=== PATIENT | male | born 1945 | race Caucasian/White ===

== ENCOUNTER 2022-02-11 18:01 | Emergency (ER) | payer MEDICARE, OTHER ==
[~2022-02-11 18:01] MED LIST: Iopamidol 370 76% 100 ML VIAL ONE
[2022-02-11 18:37] LABS: #Eosinphils 0.2 thou/uL (0.0-0.7); #Lymphocytes 1.4 thou/uL (1.20-3.40); #Monocytes 0.6 thou/uL (0.11-0.59); #Neutrophils 6.2 thou/uL (1.40-6.50); %Basophils 0.1 % (0.0-1.0); %Eosinophils 2.1 % (0.0-10.0); %Lymphocytes 16.6 % (21.0-51.0); %Neutrophils 74.2 % (42.0-75.0); Hemoglobin 11.2 g/dL (14.0-18.0); Mean Corpuscular HGB CONC 33.5 g/dL (32.0-36.0); Mean Corpuscular Hemoglobin 33.3 pg (27.0-31.0); Mean Corpuscular Volume 99.3 fL (78.0-98.0); Mean Platelet Volume 7.2 fL (7.4-10.4); Platelet Count 164 thou/uL (130-400); RBC Distribution Width 11.8 % (11.5-14.5); Red Blood Cell (RBC) Count 3.37 mill/uL (4.70-6.10); White Blood Cell (WBC) Count 8.3 thou/uL (4.8-10.8)
[2022-02-11] MEDS ORDERED: Ondansetron PF 4 MG/2 ML Vial ONE (18:42)
[2022-02-11 19:21] LABS: ALT (SGPT) 15 U/L (8-55); AST (SGOT) 20 U/L (5-34); Albumin 4.2 g/dL (3.4-4.8); Alkaline Phosphatase 65 U/L (40-110); Anion Gap 13 mmol/L (10-20); BUN (Urea Nitrogen) 22 mg/dL (8.4-25.7); Calc. Creatinine Clearance 0 mL/min (70-130); Calcium 8.5 mg/dL (7.8-10.44); Carbon Dioxide 17 mmol/L (23-31); Chloride 100 mmol/L (98-107); Estimated GFR 40; Globulin 2.6 g/dL (2.4-3.5); Glucose 95 mg/dL (83-110); Potassium 4.3 mmol/L (3.5-5.1); Protein, Total 6.8 g/dL (5.8-8.1); Sodium 126 mmol/L (136-145)
== END 2022-02-11 22:24 | disposition home or self-care (01) ==
LOC: ERS 18:01
DX: I71.40 Abdominal aortic aneurysm, without rupture, unspecified (principal); K59.00 Constipation, unspecified; E78.5 Hyperlipidemia, unspecified; I10 Essential (primary) hypertension; I48.91 Unspecified atrial fibrillation; N40.0 Benign prostatic hyperplasia without lower urinary tract symptoms; Z79.899 Other long term (current) drug therapy
CPT/HCPCS: 36415; 74177; 80053; 83605; 83880; 84484; 85025; 93005; 96374; J2405; Q9967

== ENCOUNTER 2022-05-09 11:07 | Inpatient (IN) | payer MEDICARE ==
[~2022-05-09 11:07] MED LIST changes: -Iopamidol 370 76% 100 ML VIAL ONE; +Iopamidol-370 76% 500 ML 1 ML ONE
[2022-05-09] MEDS ORDERED: Ipratropium Bromide 2.5 ml Neb ONE (11:32)
[2022-05-09] MEDS ORDERED: Atropine Sulfate 1 mg/10 ml Syringe ONE (11:40)
[2022-05-09] MEDS ORDERED: methylPREDNISolone Sod Succ/PF 125 MG/2 ML VIAL ONE (11:40)
[2022-05-09 12:16] LABS: #Lymphocytes 0.5 thou/uL (1.20-3.40); #Monocytes 0.5 thou/uL (0.11-0.59); #Neutrophils 10.7 thou/uL (1.40-6.50); %Basophils 0.4 % (0.0-1.0); %Eosinophils 0.2 % (0.0-10.0); %Monocytes 4.6 % (0.0-10.0); %Neutrophils 90.9 % (42.0-75.0); Hemoglobin 10.9 g/dL (14.0-18.0); Mean Corpuscular HGB CONC 33.3 g/dL (32.0-36.0); Mean Corpuscular Hemoglobin 33.5 pg (27.0-31.0); Mean Platelet Volume 7.1 fL (7.4-10.4); Platelet Count 202 10x3/uL (130-400); RBC Distribution Width 12.3 % (11.5-14.5); Red Blood Cell (RBC) Count 3.27 mill/uL (4.70-6.10); White Blood Cell (WBC) Count 11.7 10x3/uL (4.8-10.8)
[2022-05-09 12:36] LABS: ALT (SGPT) Less than 7 U/L (8-55); AST (SGOT) 11 U/L (5-34); Albumin 3.3 g/dL (3.4-4.8); Alkaline Phosphatase 81 U/L (40-110); Anion Gap 15 mmol/L (10-20); BUN (Urea Nitrogen) 21 mg/dL (8.4-25.7); Bilirubin, Total 0.9 mg/dL (0.2-1.2); Calc. Creatinine Clearance 0 mL/min (70-130); Calcium 8.3 mg/dL (7.8-10.44); Carbon Dioxide 17 mmol/L (23-31); Chloride 105 mmol/L (98-107); Estimated GFR 55; Globulin 3.3 g/dL (2.4-3.5); Glucose 116 mg/dL (83-110); Potassium 4.2 mmol/L (3.5-5.1); Protein, Total 6.6 g/dL (5.8-8.1); Sodium 133 mmol/L (136-145)
[2022-05-09 12:43] LABS: INR-International Normal Ratio 1.1; PTT 40.7 sec (22.9-36.1)
[2022-05-09 12:44] LABS: D-Dimer Test 1.25 *mcg/mL (0.27-0.43)
[2022-05-09 13:03] LABS: SARS-CoV-2 NAA Rapid Test DETECTED (NotDetected)
[2022-05-09 13:25] LABS: Analyzer IN Cardio ER; CO2 Tension 26.8 mmHg (35.0-45.0); Calcium, Ionized (arterial) 1.12 mmol/L (1.12-1.30); Carboxyhemoglobin (COHb) 0.3 gm% (0.0-3.0); Hemoglobin (Hb) 10.2 g/dL (14.0-18.0); O2 Tension (PaO2), arterial 68.2 mmHg (> 70.0); Potassium - ABG Lab 4.11 mmol/L (3.70-5.30); pH, Arterial 7.45 (7.35-7.45)
[2022-05-09 13:29] LABS: Puncture Site LRA
[2022-05-09] MEDS ORDERED: cefTRIAXone\\ROCEPHIN 2 GM VIAL ONE (13:30)
[2022-05-09] MEDS ORDERED: Azithromycin 500 MG VIAL ONE (14:10)
[2022-05-09] MEDS ORDERED: Ondansetron ODT 4 MG TAB PO PRN (15:56)
[2022-05-09] MEDS ORDERED: Acetaminophen 650 MG Suppository PR PRN (15:56)
[2022-05-09] MEDS ORDERED: Ondansetron PF 4 MG/2 ML Vial IVP PRN (15:56)
[2022-05-09] MEDS ORDERED: Ipratropium/Albuterol 3 ML NEB NEB PRN (15:58)
[2022-05-09] MEDS ORDERED: REMDESIVIR 200 MG in Sodium Chloride 0.9% 250 ML 210 ML IV SCH (21:00)
[2022-05-09] MEDS: guaiFENesin ER 600 MG TAB PO SCH (21:46)
[2022-05-09 23:44] VITALS: BMI 19.5
[2022-05-10 04:15] LABS: Legionella Urinary Ag Negative (Negative); Strep pneumo Urine Ag NEGATIVE (NEGATIVE)
[2022-05-10] MEDS ORDERED: Levothyroxine Sodium 125 MCG TAB PO SCH (06:00)
[2022-05-10 07:37] LABS: #Lymphocytes 0.4 thou/uL (1.20-3.40); #Monocytes 0.3 thou/uL (0.11-0.59); #Neutrophils 9.2 thou/uL (1.40-6.50); %Eosinophils 0.2 % (0.0-10.0); %Lymphocytes 4.3 % (21.0-51.0); %Neutrophils 92.6 % (42.0-75.0); Hemoglobin 9.8 g/dL (14.0-18.0); Mean Corpuscular HGB CONC 32.5 g/dL (32.0-36.0); Mean Corpuscular Hemoglobin 33.3 pg (27.0-31.0); Mean Platelet Volume 7.3 fL (7.4-10.4); Platelet Count 224 10x3/uL (130-400); RBC Distribution Width 12.2 % (11.5-14.5); Red Blood Cell (RBC) Count 2.95 mill/uL (4.70-6.10); White Blood Cell (WBC) Count 9.9 10x3/uL (4.8-10.8)
[2022-05-10 07:57] LABS: Anion Gap 13 mmol/L (10-20); BUN (Urea Nitrogen) 26 mg/dL (8.4-25.7); Calc. Creatinine Clearance 37 mL/min (70-130); Calcium 8.2 mg/dL (7.8-10.44); Carbon Dioxide 15 mmol/L (23-31); Chloride 108 mmol/L (98-107); Estimated GFR 52; Glucose 120 mg/dL (83-110); Potassium 4.2 mmol/L (3.5-5.1); Sodium 132 mmol/L (136-145)
[2022-05-10] MEDS: Dexamethasone 4 MG TAB PO SCH (08:24)
[2022-05-10] MEDS: guaiFENesin ER 600 MG TAB PO SCH ×2 (08:25→20:22)
[2022-05-10] MEDS: cefTRIAXone\\ROCEPHIN 1 GM in Sodium Chloride 0.9% 100 ML IVPB SCH (12:05)
[2022-05-10] MEDS: Sodium Chloride 0.9% 1,000 ML IV SCH ×2 (12:05→20:23)
[2022-05-10] MEDS: Azithromycin 500 MG in Sodium Chloride 0.9% 250 ML 250 ML IVPB SCH (15:27)
[2022-05-10] MEDS: REMDESIVIR 100 MG in Sodium Chloride 0.9% 250 ML 230 ML IV SCH (20:22)
[2022-05-10] MEDS: Tamsulosin HCl 0.4 MG CAP PO SCH (20:22)
[2022-05-10] MEDS: Acetaminophen 325 MG TAB PO PRN (20:23)
[2022-05-11 07:20] LABS: #Lymphocytes 0.4 thou/uL (1.20-3.40); #Monocytes 0.3 thou/uL (0.11-0.59); #Neutrophils 7.5 thou/uL (1.40-6.50); %Eosinophils 0.1 % (0.0-10.0); %Lymphocytes 4.4 % (21.0-51.0); %Monocytes 4.1 % (0.0-10.0); %Neutrophils 91.4 % (42.0-75.0); Hemoglobin 9.6 g/dL (14.0-18.0); Mean Corpuscular HGB CONC 34.3 g/dL (32.0-36.0); Mean Corpuscular Hemoglobin 34.3 pg (27.0-31.0); Mean Corpuscular Volume 99.9 fl (78.0-98.0); Mean Platelet Volume 7.2 fL (7.4-10.4); Platelet Count 253 10x3/uL (130-400); RBC Distribution Width 12.3 % (11.5-14.5); Red Blood Cell (RBC) Count 2.79 mill/uL (4.70-6.10); White Blood Cell (WBC) Count 8.2 10x3/uL (4.8-10.8)
[2022-05-11 07:41] LABS: Anion Gap 13 mmol/L (10-20); BUN (Urea Nitrogen) 37 mg/dL (8.4-25.7); Calc. Creatinine Clearance 38 mL/min (70-130); Calcium 8.2 mg/dL (7.8-10.44); Carbon Dioxide 17 mmol/L (23-31); Chloride 112 mmol/L (98-107); Estimated GFR 54; Glucose 119 mg/dL (83-110); Potassium 4.3 mmol/L (3.5-5.1); Sodium 138 mmol/L (136-145)
[2022-05-11] MEDS: guaiFENesin ER 600 MG TAB PO SCH ×2 (08:34→20:18)
[2022-05-11] MEDS: Dexamethasone 4 MG TAB PO SCH (08:34)
[2022-05-11] MEDS: Sodium Chloride 0.9% 1,000 ML IV SCH (11:28)
[2022-05-11] MEDS: cefTRIAXone\\ROCEPHIN 1 GM in Sodium Chloride 0.9% 100 ML IVPB SCH (12:29)
[2022-05-11] MEDS: Albuterol 200 PUFF (6.7GM INHALER) INH PRN ×2 (12:29→21:00)
[2022-05-11] MEDS: Azithromycin 500 MG in Sodium Chloride 0.9% 250 ML 250 ML IVPB SCH (15:58)
[2022-05-11] MEDS: Tamsulosin HCl 0.4 MG CAP PO SCH (20:18)
[2022-05-11] MEDS: REMDESIVIR 100 MG in Sodium Chloride 0.9% 250 ML 230 ML IV SCH (20:18)
[2022-05-11] MEDS: Atorvastatin Calcium 40 MG TAB PO SCH (20:18)
[2022-05-11] MEDS: Acetaminophen 325 MG TAB PO PRN (20:36)
[2022-05-12] MEDS: Sodium Chloride 0.9% 1,000 ML IV SCH (04:10)
[2022-05-12] MEDS: Albuterol 200 PUFF (6.7GM INHALER) INH PRN (05:30)
[2022-05-12 06:16] LABS: #Lymphocytes 0.4 thou/uL (1.20-3.40); #Monocytes 0.3 thou/uL (0.11-0.59); #Neutrophils 6.7 thou/uL (1.40-6.50); %Eosinophils 0.1 % (0.0-10.0); %Lymphocytes 4.9 % (21.0-51.0); %Monocytes 3.5 % (0.0-10.0); %Neutrophils 91.6 % (42.0-75.0); Hemoglobin 9.5 g/dL (14.0-18.0); Mean Corpuscular Hemoglobin 33.3 pg (27.0-31.0); Mean Platelet Volume 7.2 fL (7.4-10.4); Platelet Count 271 10x3/uL (130-400); RBC Distribution Width 12.2 % (11.5-14.5); Red Blood Cell (RBC) Count 2.86 mill/uL (4.70-6.10); White Blood Cell (WBC) Count 7.3 10x3/uL (4.8-10.8)
[2022-05-12 06:40] LABS: Anion Gap 13 mmol/L (10-20); BUN (Urea Nitrogen) 44 mg/dL (8.4-25.7); Calc. Creatinine Clearance 39 mL/min (70-130); Calcium 8.1 mg/dL (7.8-10.44); Carbon Dioxide 17 mmol/L (23-31); Chloride 108 mmol/L (98-107); Estimated GFR 55; Glucose 118 mg/dL (83-110); Potassium 4.6 mmol/L (3.5-5.1); Sodium 133 mmol/L (136-145)
[2022-05-12] MEDS: Dextrose 5 %-0.45 % NaCl 1,000 ML IV SCH ×2 (09:03→20:52)
[2022-05-12] MEDS: Dexamethasone 4 MG TAB PO SCH (09:04)
[2022-05-12] MEDS: guaiFENesin ER 600 MG TAB PO SCH ×2 (09:04→20:52)
[2022-05-12] MEDS: Clopidogrel Bisulfate 75 MG TAB PO SCH (09:04)
[2022-05-12] MEDS: cefTRIAXone\\ROCEPHIN 1 GM in Sodium Chloride 0.9% 100 ML IVPB SCH (13:47)
[2022-05-12] MEDS: Azithromycin 500 MG in Sodium Chloride 0.9% 250 ML 250 ML IVPB SCH (15:53)
[2022-05-12] MEDS: Atorvastatin Calcium 40 MG TAB PO SCH (20:52)
[2022-05-12] MEDS: REMDESIVIR 100 MG in Sodium Chloride 0.9% 250 ML 230 ML IV SCH (20:52)
[2022-05-12] MEDS: Tamsulosin HCl 0.4 MG CAP PO SCH (20:52)
[2022-05-13 07:34] LABS: #Lymphocytes 0.4 thou/uL (1.20-3.40); #Monocytes 0.4 thou/uL (0.11-0.59); #Neutrophils 5.5 thou/uL (1.40-6.50); %Basophils 0.6 % (0.0-1.0); %Eosinophils 0.1 % (0.0-10.0); %Lymphocytes 5.6 % (21.0-51.0); %Monocytes 5.8 % (0.0-10.0); Hemoglobin 10.4 g/dL (14.0-18.0); Mean Corpuscular Hemoglobin 33.9 pg (27.0-31.0); Mean Corpuscular Volume 99.8 fl (78.0-98.0); Platelet Count 256 10x3/uL (130-400); RBC Distribution Width 11.9 % (11.5-14.5); Red Blood Cell (RBC) Count 3.07 mill/uL (4.70-6.10); White Blood Cell (WBC) Count 6.2 10x3/uL (4.8-10.8)
[2022-05-13 08:27] LABS: ALT (SGPT) 11 U/L (8-55); AST (SGOT) 15 U/L (5-34); Albumin 2.9 g/dL (3.4-4.8); Alkaline Phosphatase 64 U/L (40-110); Anion Gap 11 mmol/L (10-20); BUN (Urea Nitrogen) 39 mg/dL (8.4-25.7); Bilirubin, Direct 0.2 mg/dL (0.1-0.3); Bilirubin, Total 0.3 mg/dL (0.2-1.2); Calc. Creatinine Clearance 48 mL/min (70-130); Calcium 8.1 mg/dL (7.8-10.44); Carbon Dioxide 15 mmol/L (23-31); Chloride 107 mmol/L (98-107); Estimated GFR 72; Glucose 144 mg/dL (83-110); Potassium 4.4 mmol/L (3.5-5.1); Protein, Total 5.8 g/dL (5.8-8.1); Sodium 129 mmol/L (136-145)
[2022-05-13] MEDS: Tamsulosin HCl 0.4 MG CAP PO SCH ×2 (08:40→20:24)
[2022-05-13] MEDS: Cefdinir 300 MG CAP PO SCH ×2 (08:40→20:23)
[2022-05-13] MEDS: Dexamethasone 4 MG TAB PO SCH (08:41)
[2022-05-13] MEDS: Clopidogrel Bisulfate 75 MG TAB PO SCH (08:41)
[2022-05-13] MEDS: guaiFENesin ER 600 MG TAB PO SCH ×2 (08:41→20:23)
[2022-05-13] MEDS: Finasteride 5 MG TAB PO SCH (08:41)
[2022-05-13] MEDS: Dextrose 5 %-0.45 % NaCl 1,000 ML IV SCH ×2 (08:48→20:23)
[2022-05-13] MEDS: Acetaminophen 325 MG TAB PO PRN (14:09)
[2022-05-13] MEDS: Albuterol 200 PUFF (6.7GM INHALER) INH PRN (14:09)
[2022-05-13] MEDS: REMDESIVIR 100 MG in Sodium Chloride 0.9% 250 ML 230 ML IV SCH (20:23)
[2022-05-13] MEDS: Atorvastatin Calcium 40 MG TAB PO SCH (20:23)
[2022-05-14 08:27] LABS: #Lymphocytes 0.5 thou/uL (1.20-3.40); #Monocytes 0.6 thou/uL (0.11-0.59); #Neutrophils 5.5 thou/uL (1.40-6.50); %Basophils 0.2 % (0.0-1.0); %Eosinophils 0.1 % (0.0-10.0); %Lymphocytes 7.1 % (21.0-51.0); %Monocytes 8.7 % (0.0-10.0); Hemoglobin 10.6 g/dL (14.0-18.0); Mean Corpuscular HGB CONC 34.2 g/dL (32.0-36.0); Mean Corpuscular Hemoglobin 33.3 pg (27.0-31.0); Mean Corpuscular Volume 97.6 fl (78.0-98.0); Mean Platelet Volume 7.5 fL (7.4-10.4); Platelet Count 247 10x3/uL (130-400); RBC Distribution Width 11.9 % (11.5-14.5); Red Blood Cell (RBC) Count 3.19 mill/uL (4.70-6.10); White Blood Cell (WBC) Count 6.6 10x3/uL (4.8-10.8)
[2022-05-14 08:49] LABS: ALT (SGPT) 13 U/L (8-55); AST (SGOT) 14 U/L (5-34); Albumin 2.7 g/dL (3.4-4.8); Alkaline Phosphatase 57 U/L (40-110); Anion Gap 9 mmol/L (10-20); BUN (Urea Nitrogen) 32 mg/dL (8.4-25.7); Bilirubin, Direct 0.2 mg/dL (0.1-0.3); Bilirubin, Total 0.4 mg/dL (0.2-1.2); Calc. Creatinine Clearance 52 mL/min (70-130); Calcium 7.8 mg/dL (7.8-10.44); Carbon Dioxide 19 mmol/L (23-31); Chloride 103 mmol/L (98-107); Estimated GFR 79; Glucose 129 mg/dL (83-110); Potassium 4.2 mmol/L (3.5-5.1); Protein, Total 5.4 g/dL (5.8-8.1); Sodium 127 mmol/L (136-145)
[2022-05-14] MEDS: Cefdinir 300 MG CAP PO SCH ×2 (08:50→20:59)
[2022-05-14] MEDS: Finasteride 5 MG TAB PO SCH (08:50)
[2022-05-14] MEDS: Dexamethasone 4 MG TAB PO SCH (08:50)
[2022-05-14] MEDS: Tamsulosin HCl 0.4 MG CAP PO SCH ×2 (08:50→20:59)
[2022-05-14] MEDS: guaiFENesin ER 600 MG TAB PO SCH ×2 (08:50→20:59)
[2022-05-14] MEDS: Clopidogrel Bisulfate 75 MG TAB PO SCH (08:50)
[2022-05-14] MEDS: Atorvastatin Calcium 40 MG TAB PO SCH (20:59)
[2022-05-14] MEDS: Acetaminophen 325 MG TAB PO PRN (21:00)
[2022-05-15 07:52] LABS: #Lymphocytes 0.6 thou/uL (1.20-3.40); #Monocytes 0.6 thou/uL (0.11-0.59); #Neutrophils 6.6 thou/uL (1.40-6.50); %Eosinophils 0.1 % (0.0-10.0); %Lymphocytes 7.1 % (21.0-51.0); %Monocytes 7.5 % (0.0-10.0); %Neutrophils 85.3 % (42.0-75.0); Hemoglobin 11.1 g/dL (14.0-18.0); Mean Corpuscular HGB CONC 35.1 g/dL (32.0-36.0); Mean Corpuscular Hemoglobin 33.9 pg (27.0-31.0); Mean Corpuscular Volume 96.6 fl (78.0-98.0); Mean Platelet Volume 7.3 fL (7.4-10.4); Platelet Count 214 10x3/uL (130-400); RBC Distribution Width 11.9 % (11.5-14.5); Red Blood Cell (RBC) Count 3.26 mill/uL (4.70-6.10); White Blood Cell (WBC) Count 7.7 10x3/uL (4.8-10.8)
[2022-05-15 08:06] LABS: Anion Gap 10 mmol/L (10-20); BUN (Urea Nitrogen) 28 mg/dL (8.4-25.7); Carbon Dioxide 18 mmol/L (23-31); Chloride 100 mmol/L (98-107); Sodium 124 mmol/L (136-145)
[2022-05-15 08:07] LABS: CRP (Inflammatory) 1.72 mg/dL (= or < 0.5); Calc. Creatinine Clearance 55 mL/min (70-130); Calcium 7.6 mg/dL (7.8-10.44); Estimated GFR 84; Glucose 108 mg/dL (83-110)
[2022-05-15] MEDS: guaiFENesin ER 600 MG TAB PO SCH ×2 (08:29→21:05)
[2022-05-15] MEDS: Tamsulosin HCl 0.4 MG CAP PO SCH ×2 (08:29→21:05)
[2022-05-15] MEDS: Cefdinir 300 MG CAP PO SCH ×2 (08:29→21:05)
[2022-05-15] MEDS: Clopidogrel Bisulfate 75 MG TAB PO SCH (08:29)
[2022-05-15] MEDS: Finasteride 5 MG TAB PO SCH (08:29)
[2022-05-15] MEDS: Dexamethasone 4 MG TAB PO SCH (08:29)
[2022-05-15] MEDS: Albuterol 200 PUFF (6.7GM INHALER) INH SCH ×3 (11:01→21:05)
[2022-05-15] MEDS: methylPREDNISolone Sod Succ 40 MG VIAL IVP SCH ×2 (14:06→21:06)
[2022-05-15] MEDS: Atorvastatin Calcium 40 MG TAB PO SCH (21:05)
[2022-05-15 22:45] LABS: Anion Gap 10 mmol/L (10-20); BUN (Urea Nitrogen) 33 mg/dL (8.4-25.7); Calc. Creatinine Clearance 56 mL/min (70-130); Calcium 7.5 mg/dL (7.8-10.44); Carbon Dioxide 18 mmol/L (23-31); Chloride 100 mmol/L (98-107); Estimated GFR 86; Glucose 130 mg/dL (83-110); Potassium 4.4 mmol/L (3.5-5.1); Sodium 124 mmol/L (136-145)
[2022-05-15] MEDS ORDERED: Sodium Chloride 1 GM TAB PO SCH (23:00)
[2022-05-15] MEDS ORDERED: Sodium Bicarbonate Tab 325 MG TAB PO SCH (23:00)
[2022-05-16] MEDS: methylPREDNISolone Sod Succ 40 MG VIAL IVP SCH ×2 (04:42→21:15)
[2022-05-16] MEDS: Albuterol 200 PUFF (6.7GM INHALER) INH SCH ×4 (04:53→18:02)
[2022-05-16 07:20] LABS: Albumin 2.5 g/dL (3.4-4.8); Anion Gap 10 mmol/L (10-20); BUN (Urea Nitrogen) 34 mg/dL (8.4-25.7); BUN/Creatinine Ratio 35.79; Calc. Creatinine Clearance 55 mL/min (70-130); Calcium 7.6 mg/dL (7.8-10.44); Carbon Dioxide 19 mmol/L (23-31); Chloride 100 mmol/L (98-107); Estimated GFR 84; Glucose 135 mg/dL (83-110); Phosphorus 3.4 mg/dL (2.3-4.7); Potassium 4.4 mmol/L (3.5-5.1); Sodium 125 mmol/L (136-145)
[2022-05-16 07:38] LABS: Thyroid Stimulating Hormone 1.1314 uIU/mL (0.35-4.94); Vitamin D, 25 Hydroxy Less than 3.4 ng/ml (> 30.0)
[2022-05-16] MEDS ORDERED: Ergocalciferol 1.25 MG(50,000 UNITS) CAP PO SCH (09:00)
[2022-05-16] MEDS: Tamsulosin HCl 0.4 MG CAP PO SCH ×2 (09:07→20:56)
[2022-05-16] MEDS: Clopidogrel Bisulfate 75 MG TAB PO SCH (09:08)
[2022-05-16] MEDS: Sodium Bicarbonate Tab 325 MG TAB PO SCH ×3 (09:08→20:54)
[2022-05-16] MEDS: Finasteride 5 MG TAB PO SCH (09:08)
[2022-05-16] MEDS: Cefdinir 300 MG CAP PO SCH ×2 (09:08→20:55)
[2022-05-16] MEDS: guaiFENesin ER 600 MG TAB PO SCH ×2 (09:08→20:56)
[2022-05-16] MEDS: Sodium Chloride 1 GM TAB PO SCH ×3 (09:08→20:55)
[2022-05-16] MEDS ORDERED: Mag-Al 1200 mg/1200 mg/30 ML UDCUP PO PRN (10:23)
[2022-05-16] MEDS ORDERED: Mag-Al 1200 mg/1200 mg/30 ML UDCUP PO SCH (11:15)
[2022-05-16] MEDS: Atorvastatin Calcium 40 MG TAB PO SCH (20:56)
[2022-05-16] MEDS: Acetaminophen 325 MG TAB PO PRN (21:13)
[2022-05-17 07:35] LABS: Hemoglobin 10.2 g/dL (14.0-18.0); Mean Corpuscular HGB CONC 34.4 g/dL (32.0-36.0); Mean Corpuscular Hemoglobin 33.2 pg (27.0-31.0); Mean Corpuscular Volume 96.5 fl (78.0-98.0); Mean Platelet Volume 8.3 fL (7.4-10.4); Platelet Count 170 10x3/uL (130-400); RBC Distribution Width 12.1 % (11.5-14.5); Red Blood Cell (RBC) Count 3.06 mill/uL (4.70-6.10); White Blood Cell (WBC) Count 9.3 10x3/uL (4.8-10.8)
[2022-05-17 07:45] LABS: Anion Gap 9 mmol/L (10-20); BUN (Urea Nitrogen) 32 mg/dL (8.4-25.7); Calc. Creatinine Clearance 49 mL/min (70-130); Calcium 7.5 mg/dL (7.8-10.44); Carbon Dioxide 21 mmol/L (23-31); Chloride 100 mmol/L (98-107); Estimated GFR 74; Glucose 116 mg/dL (83-110); Potassium 4.8 mmol/L (3.5-5.1); Sodium 125 mmol/L (136-145)
[2022-05-17] MEDS: Cefdinir 300 MG CAP PO SCH ×2 (08:31→21:25)
[2022-05-17] MEDS: Albumin 25% 25 GM/100 ML BOT IVPB SCH ×3 (08:31→21:24)
[2022-05-17] MEDS: Tamsulosin HCl 0.4 MG CAP PO SCH ×2 (08:31→21:25)
[2022-05-17] MEDS: Finasteride 5 MG TAB PO SCH (08:32)
[2022-05-17] MEDS: Sodium Bicarbonate Tab 325 MG TAB PO SCH ×3 (08:32→21:25)
[2022-05-17] MEDS: guaiFENesin ER 600 MG TAB PO SCH ×2 (08:32→21:25)
[2022-05-17] MEDS: methylPREDNISolone Sod Succ 40 MG VIAL IVP SCH ×2 (08:32→21:25)
[2022-05-17] MEDS: Clopidogrel Bisulfate 75 MG TAB PO SCH (08:32)
[2022-05-17 09:00] LABS: Band 1 % (5-11); Lymphocytes 3 % (21-51); MDiff Complete? YES; Monocytes 4 % (0-10); Neutrophil 92 % (42-75); Polychromasia SLIGHT = 2-3 cells (100X) (0-2/hpf)
[2022-05-17] MEDS: Albuterol 200 PUFF (6.7GM INHALER) INH SCH ×4 (09:00→18:06)
[2022-05-17] MEDS: Sodium Chloride 1 GM TAB PO SCH ×3 (09:01→21:25)
[2022-05-17] MEDS ORDERED: Furosemide 40 MG/4 ML VIAL SLOW IVP SCH (11:30)
[2022-05-17] MEDS: Atorvastatin Calcium 40 MG TAB PO SCH (21:25)
[2022-05-18] MEDS: Albuterol 200 PUFF (6.7GM INHALER) INH SCH ×4 (06:05→18:08)
[2022-05-18 08:46] LABS: Albumin 3.7 g/dL (3.4-4.8); Anion Gap 10 mmol/L (10-20); BUN (Urea Nitrogen) 35 mg/dL (8.4-25.7); BUN/Creatinine Ratio 29.41; Calc. Creatinine Clearance 44 mL/min (70-130); Calcium 8.4 mg/dL (7.8-10.44); Carbon Dioxide 25 mmol/L (23-31); Chloride 96 mmol/L (98-107); Estimated GFR 64; Glucose 117 mg/dL (83-110); Phosphorus 2.9 mg/dL (2.3-4.7); Potassium 4.2 mmol/L (3.5-5.1); Sodium 127 mmol/L (136-145)
[2022-05-18] MEDS: Sodium Chloride 1 GM TAB PO SCH ×3 (08:51→20:20)
[2022-05-18] MEDS: Tamsulosin HCl 0.4 MG CAP PO SCH ×2 (08:51→20:20)
[2022-05-18] MEDS: predniSONE 5 MG TAB PO SCH (08:51)
[2022-05-18] MEDS: guaiFENesin ER 600 MG TAB PO SCH ×2 (08:51→20:20)
[2022-05-18] MEDS: Clopidogrel Bisulfate 75 MG TAB PO SCH (08:51)
[2022-05-18] MEDS: Sodium Bicarbonate Tab 325 MG TAB PO SCH ×3 (08:51→20:19)
[2022-05-18] MEDS: Cefdinir 300 MG CAP PO SCH ×2 (08:51→20:20)
[2022-05-18] MEDS: Finasteride 5 MG TAB PO SCH (08:51)
[2022-05-18] MEDS: Acetaminophen 325 MG TAB PO PRN (09:48)
[2022-05-18] MEDS: Atorvastatin Calcium 40 MG TAB PO SCH (20:20)
[2022-05-19 07:00] LABS: Albumin 3.3 g/dL (3.4-4.8); Anion Gap 11 mmol/L (10-20); BUN (Urea Nitrogen) 32 mg/dL (8.4-25.7); BUN/Creatinine Ratio 26.23; Calc. Creatinine Clearance 43 mL/min (70-130); Calcium 8.3 mg/dL (7.8-10.44); Carbon Dioxide 25 mmol/L (23-31); Chloride 103 mmol/L (98-107); Estimated GFR 62; Glucose 99 mg/dL (83-110); Phosphorus 2.9 mg/dL (2.3-4.7); Potassium 4.6 mmol/L (3.5-5.1); Sodium 134 mmol/L (136-145)
[2022-05-19] MEDS: Sodium Bicarbonate Tab 325 MG TAB PO SCH ×2 (09:22→15:28)
[2022-05-19] MEDS: Cefdinir 300 MG CAP PO SCH (09:22)
[2022-05-19] MEDS: Albuterol 200 PUFF (6.7GM INHALER) INH SCH ×3 (09:22→15:28)
[2022-05-19] MEDS: Sodium Chloride 1 GM TAB PO SCH ×2 (09:23→15:28)
[2022-05-19] MEDS: guaiFENesin ER 600 MG TAB PO SCH (09:23)
[2022-05-19] MEDS: Finasteride 5 MG TAB PO SCH (09:23)
[2022-05-19] MEDS: Tamsulosin HCl 0.4 MG CAP PO SCH (09:23)
[2022-05-19] MEDS: Clopidogrel Bisulfate 75 MG TAB PO SCH (09:23)
[2022-05-19] MEDS: predniSONE 5 MG TAB PO SCH (09:23)
[2022-05-19 17:53] VITALS: BP 164/80; TEMP 97.6
== END 2022-05-19 16:43 | DRG 177 ==
LOC: ERS 11:07 → T4-A 15:48 → ERHOLD 15:48 → T4-A 05-10 10:15
PROVIDERS: ADMIT Internal Medicine; ATTEND Internal Medicine
PROC: XW033E5 Introduction of Remdesivir Anti-infective into Peripheral Vein, Percutaneous Approach, New Technology Group 5 (ICD-10-PCS; principal; 2022-05-09)
PROC: 8E0ZXY6 Isolation (ICD-10-PCS; 2022-05-09)
DX: U07.1 COVID-19 (principal); J12.82 Pneumonia due to coronavirus disease 2019; J69.0 Pneumonitis due to inhalation of food and vomit; J96.01 Acute respiratory failure with hypoxia; N17.9 Acute kidney failure, unspecified; J44.0 Chronic obstructive pulmonary disease with (acute) lower respiratory infection; I69.351 Hemiplegia and hemiparesis following cerebral infarction affecting right dominant side; E22.2 Syndrome of inappropriate secretion of antidiuretic hormone; E87.20 Acidosis, unspecified; J44.1 Chronic obstructive pulmonary disease with (acute) exacerbation; I10 Essential (primary) hypertension; N40.1 Benign prostatic hyperplasia with lower urinary tract symptoms; R33.8 Other retention of urine; E78.5 Hyperlipidemia, unspecified; E03.9 Hypothyroidism, unspecified; E55.9 Vitamin D deficiency, unspecified; F32.A Depression, unspecified; E88.09 Other disorders of plasma-protein metabolism, not elsewhere classified; F41.9 Anxiety disorder, unspecified; Z88.8 Allergy status to other drugs, medicaments and biological substances; Z87.891 Personal history of nicotine dependence; I69.328 Other speech and language deficits following cerebral infarction; I69.391 Dysphagia following cerebral infarction; Z79.899 Other long term (current) drug therapy; Z79.02 Long term (current) use of antithrombotics/antiplatelets
CPT/HCPCS: 36415; 36600; 71045; 71275; 74230; 80048; 80053; 80069; 80076; 82306; 82805; 83605; 83880; 83930; 83935; 84443; 84484; 85025; 85379; 85610; 85730; 86140; 87040; 87449; 87899; 93005; 94760; 96374; 96375; J0248; J0456; J0461; J0696; J1650; J1940; J2920; J2930; J3490; J7042; J7050; J7512; J7611; J8540; P9047; Q0162; Q9967

== ENCOUNTER 2022-11-13 09:16 | Day surgery (SDC) | payer MEDICARE ==
[2022-11-13] MEDS ORDERED: Sodium Bicarbonate 2.5 MEQ/5 ML VIAL ONE (09:54)
[2022-11-13] MEDS ORDERED: Acetaminophen 500 MG TAB ONE (12:31)
[2022-11-13 13:04] VITALS: BP 172/74; TEMP 99.4
== END 2022-11-13 15:04 ==
LOC: CT 09:16
PROVIDERS: ATTEND Urology
DX: R33.8 Other retention of urine (principal); Z88.6 Allergy status to analgesic agent
CPT/HCPCS: 51102; 77012; C2627; J1956

== ENCOUNTER 2024-02-17 07:44 | Inpatient (IN) | payer MEDICARE, MEDICAID ==
[2024-02-17 08:22] LABS: #Basophils 0.04 10x3/uL (0.0-0.2); #Eosinophils Less than 0.03 10x3/uL (0.0-0.7); %Basophils 0.2 % (0.0-1.0); %Lymphocytes 6.6 % (21.0-51.0); %Monocytes 5.1 % (0.0-10.0); %Neutrophils 87.3 % (42.0-75.0); Hematocrit 31.6 % (42.0-52.0); Hemoglobin 9.9 g/dL (14.0-18.0); Mean Corpuscular HGB CONC 31.3 g/dL (32.0-36.0); Mean Corpuscular Hemoglobin 30.6 pg (27.0-31.0); Mean Corpuscular Volume 97.5 fL (78.0-98.0); Mean Platelet Volume 9.5 fL (7.4-10.4); Platelet Count 205 10x3/uL (130-400); RBC Distribution Width 13.4 % (11.5-14.5); Red Blood Cell (RBC) Count 3.24 mill/uL (4.70-6.10)
[2024-02-17 08:27] LABS: Actual Bicarbonate (HCO3v) 16.5 mEq/L (22-28); Base Excess -8.8 mEq/L (-2.0 to +3.0); Calcium, Ionized (venous) 1.07 mmol/L (1.16-1.32); Chloride (VBG) 105 mmol/L (98-106); Hematocrit-VBG 32 % (42.0-52.0); Hemoglobin (Hb) 10.8 g/dL (12.6-17.4); Potassium (VBG) 4.18 mmol/L (3.70-5.30); pH (venous) 7.311 (7.32-7.43)
[2024-02-17] MEDS ORDERED: Ipratropium/Albuterol 3 ML NEB ONE (08:34)
[2024-02-17] MEDS ORDERED: Magnesium 2 GM/50 ML BAG (IN WATER) ONE (08:42)
[2024-02-17] MEDS ORDERED: Sodium Chloride 0.9% 100 ML ONE (08:42)
[2024-02-17] MEDS ORDERED: cefTRIAXone (ROCEPHIN) 2 GM VIAL ONE (08:42)
[2024-02-17] MEDS ORDERED: Azithromycin 500 MG VIAL ONE (08:42)
[2024-02-17 08:45] LABS: ALT (SGPT) 13 U/L (8-55); AST (SGOT) 13 U/L (5-34); Albumin 3.2 g/dL (3.4-4.8); Alkaline Phosphatase 77 U/L (40-110); Anion Gap 14 mmol/L (10-20); BUN (Urea Nitrogen) 38 mg/dL (8.4-25.7); Bilirubin, Total 0.7 mg/dL (0.2-1.2); Calc. Creatinine Clearance 0 mL/min (70-130); Calcium 8.2 mg/dL (7.8-10.44); Carbon Dioxide 16 mmol/L (23-31); Chloride 107 mmol/L (98-107); Estimated GFR 32; Globulin 2.8 g/dL (2.4-3.5); Glucose 151 mg/dL (83-110); Magnesium 1.7 mg/dL (1.6-2.6); Potassium 4.1 mmol/L (3.5-5.1); Sodium 133 mmol/L (136-145)
[2024-02-17 08:51] LABS: Troponin I Less than 0.010 ng/mL (< 0.028)
[2024-02-17] MEDS ORDERED: Iopamidol-370 76% 500 ML MDV (1 ML CHARGE) ONE (08:54)
[2024-02-17] MEDS ORDERED: Bisacodyl 5 MG TAB PO PRN (10:45)
[2024-02-17] MEDS ORDERED: Ipratropium/Albuterol 3 ML NEB NEB PRN (10:45)
[2024-02-17 11:24] LABS: Lactic Acid 2.21 mmol/L (0.5-2.2)
[2024-02-17 11:51] LABS: Troponin I 0.012 ng/mL (< 0.028)
[2024-02-17] MEDS: Sodium Chloride 0.9% 1,000 ML IV SCH (12:16)
[2024-02-17] MEDS: methylPREDNISolone Sod Succ 40 MG VIAL IVP SCH (12:16)
[2024-02-17] MEDS: Nicotine 14 MG PATCH TD SCH (12:16)
[2024-02-17] MEDS: Ipratropium/Albuterol 3 ML NEB NEB SCH (13:21)
[2024-02-17 15:12] LABS: Troponin I 0.011 ng/mL (< 0.028)
[2024-02-17] MEDS: traMADol HCl 50 MG TAB PO PRN (17:20)
[2024-02-17] MEDS: Gabapentin 100 MG CAP PO SCH (21:31)
[2024-02-17] MEDS: Cyclobenzaprine 10 MG TAB PO SCH (21:31)
[2024-02-17] MEDS: Atorvastatin Calcium 40 MG TAB PO SCH (21:31)
[2024-02-17] MEDS: Citalopram 10 MG TAB PO SCH (21:31)
[2024-02-18 04:16] LABS: Hematocrit 31.8 % (42.0-52.0); Hemoglobin 10.3 g/dL (14.0-18.0); Mean Corpuscular HGB CONC 32.4 g/dL (32.0-36.0); Mean Corpuscular Hemoglobin 30.7 pg (27.0-31.0); Mean Corpuscular Volume 94.6 fL (78.0-98.0); Platelet Count 197 10x3/uL (130-400); RBC Distribution Width 13.4 % (11.5-14.5); Red Blood Cell (RBC) Count 3.36 mill/uL (4.70-6.10)
[2024-02-18 04:38] LABS: Anion Gap 12 mmol/L (10-20); BUN (Urea Nitrogen) 31 mg/dL (8.4-25.7); Calc. Creatinine Clearance 43 mL/min (70-130); Carbon Dioxide 17 mmol/L (23-31); Chloride 112 mmol/L (98-107); Estimated GFR 50; Glucose 140 mg/dL (83-110); Potassium 4.3 mmol/L (3.5-5.1); Sodium 137 mmol/L (136-145)
[2024-02-18 05:09] LABS: Anisocytosis SLIGHT = 6-15 cells HPF (0-5); Band 21 % (5-11); Burr Cells SLIGHT = 2-5 cells HPF (0-1); Lymphocytes 3 % (21-51); Monocytes 4 % (0-10); Neutrophil 73 % (42-75); Platelet Adequacy Comment Platelets Normal; Poikilocytosis SLIGHT = 6-15 cells HPF (0-5); Polychromasia SLIGHT = 2-3 cells HPF (0-2)
[2024-02-18] MEDS: methylPREDNISolone Sod Succ 40 MG VIAL IVP SCH (06:19)
[2024-02-18] MEDS: cefTRIAXone\\ROCEPHIN 1 GM in Sodium Chloride 0.9% 100 ML IVPB SCH (08:54)
[2024-02-18] MEDS: Azithromycin 500 MG in Sodium Chloride 0.9% 250 ML 250 ML IVPB SCH (08:54)
[2024-02-18] MEDS: Clopidogrel Bisulfate 75 MG TAB PO SCH (08:54)
[2024-02-18] MEDS: Enoxaparin 40 MG (0.4 mL) SYRINGE SC SCH (08:54)
[2024-02-18] MEDS: guaiFENesin ER 600 MG TAB PO SCH (09:21)
[2024-02-18] MEDS ORDERED: HYDROcodone/Acetaminophen 5/325 mg Tablet PO PRN (11:26)
[2024-02-18] MEDS: NIFEdipine XL 60 MG ER.TAB PO SCH ×2 (11:55→20:34)
[2024-02-18] MEDS: Phenazopyridine HCl 100 MG TAB PO SCH (11:55)
[2024-02-18] MEDS: Melatonin 3 MG TAB PO SCH (20:38)
[2024-02-18] MEDS: Sodium Bicarbonate Tab 325 MG TAB PO SCH (20:38)
[2024-02-19 05:14] LABS: Anion Gap 12 mmol/L (10-20); BUN (Urea Nitrogen) 38 mg/dL (8.4-25.7); Calc. Creatinine Clearance 46 mL/min (70-130); Carbon Dioxide 18 mmol/L (23-31); Chloride 112 mmol/L (98-107); Estimated GFR 54; Glucose 156 mg/dL (83-110); Potassium 4.6 mmol/L (3.5-5.1); Sodium 137 mmol/L (136-145)
[2024-02-19 05:15] LABS: #Basophils Less than 0.03 10x3/uL (0.0-0.2); #Eosinophils Less than 0.03 10x3/uL (0.0-0.7); %Basophils 0.1 % (0.0-1.0); %Lymphocytes 3.8 % (21.0-51.0); %Monocytes 4.3 % (0.0-10.0); %Neutrophils 90.9 % (42.0-75.0); Hematocrit 33.5 % (42.0-52.0); Hemoglobin 10.3 g/dL (14.0-18.0); Mean Corpuscular HGB CONC 30.7 g/dL (32.0-36.0); Mean Corpuscular Volume 97.7 fL (78.0-98.0); Mean Platelet Volume 10.5 fL (7.4-10.4); Platelet Count 229 10x3/uL (130-400); RBC Distribution Width 13.4 % (11.5-14.5); Red Blood Cell (RBC) Count 3.43 mill/uL (4.70-6.10)
[2024-02-19] MEDS: Docusate 100 MG CAP PO SCH (08:58)
[2024-02-19] MEDS: Pantoprazole DR 40 MG TAB PO SCH (08:58)
[2024-02-20 04:29] LABS: #Basophils Less than 0.03 10x3/uL (0.0-0.2); #Eosinophils Less than 0.03 10x3/uL (0.0-0.7); %Basophils 0.2 % (0.0-1.0); %Lymphocytes 5.8 % (21.0-51.0); %Monocytes 4.5 % (0.0-10.0); %Neutrophils 88.5 % (42.0-75.0); Hematocrit 33.5 % (42.0-52.0); Hemoglobin 10.6 g/dL (14.0-18.0); Mean Corpuscular HGB CONC 31.6 g/dL (32.0-36.0); Mean Corpuscular Hemoglobin 30.4 pg (27.0-31.0); Mean Platelet Volume 10.6 fL (7.4-10.4); Platelet Count 214 10x3/uL (130-400); RBC Distribution Width 13.3 % (11.5-14.5); Red Blood Cell (RBC) Count 3.49 mill/uL (4.70-6.10)
[2024-02-20 05:40] LABS: Anion Gap 14 mmol/L (10-20); BUN (Urea Nitrogen) 34 mg/dL (8.4-25.7); Calc. Creatinine Clearance 49 mL/min (70-130); Calcium 8.8 mg/dL (7.8-10.44); Carbon Dioxide 15 mmol/L (23-31); Chloride 111 mmol/L (98-107); Estimated GFR 62; Glucose 147 mg/dL (83-110); Potassium 4.7 mmol/L (3.5-5.1); Sodium 135 mmol/L (136-145)
[2024-02-20] MEDS ORDERED: Phenazopyridine HCl 100 MG TAB PO PRN (10:02)
[2024-02-20] MEDS ORDERED: Polyethylene Glycol 3350 17 GM Packet PO PRN (10:04)
[2024-02-20] MEDS: traMADol HCl 50 MG TAB PO PRN (10:56)
[2024-02-20] MEDS: Sodium Bicarbonate Tab 325 MG TAB PO SCH (14:03)
[2024-02-20] MEDS ORDERED: Nicotine 14 MG PATCH TD PRN (19:25)
[2024-02-20] MEDS ORDERED: Senokot S 8.6-50 MG TAB PO SCH (21:00)
[2024-02-20] MEDS: Senokot S 8.6-50 MG TAB PO SCH (21:14)
[2024-02-21 04:38] LABS: #Basophils 0.05 10x3/uL (0.0-0.2); #Eosinophils Less than 0.03 10x3/uL (0.0-0.7); %Basophils 0.4 % (0.0-1.0); %Eosinophils 0.1 % (0.0-10.0); %Lymphocytes 13.6 % (21.0-51.0); %Monocytes 8.3 % (0.0-10.0); %Neutrophils 74.9 % (42.0-75.0); Hematocrit 35.4 % (42.0-52.0); Hemoglobin 11.2 g/dL (14.0-18.0); Mean Corpuscular HGB CONC 31.6 g/dL (32.0-36.0); Mean Corpuscular Hemoglobin 30.3 pg (27.0-31.0); Mean Corpuscular Volume 95.7 fL (78.0-98.0); Platelet Count 279 10x3/uL (130-400); RBC Distribution Width 13.2 % (11.5-14.5)
[2024-02-21 04:53] LABS: Anion Gap 14 mmol/L (10-20); BUN (Urea Nitrogen) 32 mg/dL (8.4-25.7); Calc. Creatinine Clearance 44 mL/min (70-130); Calcium 8.8 mg/dL (7.8-10.44); Carbon Dioxide 20 mmol/L (23-31); Chloride 107 mmol/L (98-107); Estimated GFR 54; Glucose 125 mg/dL (83-110); Sodium 137 mmol/L (136-145)
[2024-02-21] MEDS: methylPREDNISolone Sod Succ 40 MG VIAL IVP SCH (08:29)
[2024-02-22 03:29] LABS: #Basophils 0.05 10x3/uL (0.0-0.2); %Basophils 0.4 % (0.0-1.0); %Eosinophils 0.3 % (0.0-10.0); %Lymphocytes 14.5 % (21.0-51.0); %Monocytes 10.4 % (0.0-10.0); %Neutrophils 69.5 % (42.0-75.0); Hematocrit 36.5 % (42.0-52.0); Hemoglobin 11.6 g/dL (14.0-18.0); Mean Corpuscular HGB CONC 31.8 g/dL (32.0-36.0); Mean Corpuscular Hemoglobin 29.9 pg (27.0-31.0); Mean Corpuscular Volume 94.1 fL (78.0-98.0); Mean Platelet Volume 9.8 fL (7.4-10.4); Platelet Count 284 10x3/uL (130-400); RBC Distribution Width 13.1 % (11.5-14.5); Red Blood Cell (RBC) Count 3.88 mill/uL (4.70-6.10)
[2024-02-22 03:52] LABS: Anion Gap 15 mmol/L (10-20); BUN (Urea Nitrogen) 39 mg/dL (8.4-25.7); Calc. Creatinine Clearance 42 mL/min (70-130); Calcium 8.3 mg/dL (7.8-10.44); Carbon Dioxide 20 mmol/L (23-31); Chloride 104 mmol/L (98-107); Estimated GFR 51; Glucose 150 mg/dL (83-110); Magnesium 2.1 mg/dL (1.6-2.6); Sodium 135 mmol/L (136-145)
[2024-02-22 06:29] VITALS: BMI 20.9
[2024-02-22] MEDS: predniSONE 20 MG TAB PO SCH (07:59)
[2024-02-23 05:25] LABS: Hematocrit 32.2 % (42.0-52.0); Hemoglobin 10.5 g/dL (14.0-18.0); Mean Corpuscular HGB CONC 32.6 g/dL (32.0-36.0); Mean Corpuscular Hemoglobin 29.9 pg (27.0-31.0); Mean Corpuscular Volume 91.7 fL (78.0-98.0); Mean Platelet Volume 9.8 fL (7.4-10.4); Platelet Count 273 10x3/uL (130-400); RBC Distribution Width 13.2 % (11.5-14.5); Red Blood Cell (RBC) Count 3.51 mill/uL (4.70-6.10)
[2024-02-23 05:42] LABS: Anion Gap 12 mmol/L (10-20); BUN (Urea Nitrogen) 35 mg/dL (8.4-25.7); Calc. Creatinine Clearance 41 mL/min (70-130); Carbon Dioxide 23 mmol/L (23-31); Chloride 105 mmol/L (98-107); Estimated GFR 53; Glucose 101 mg/dL (83-110); Sodium 136 mmol/L (136-145)
[2024-02-23 05:54] LABS: Eosinophils 1 % (0-10); Lymphocytes 17 % (21-51); Monocytes 6 % (0-10); Myelocyte 2 % (0-0); Neutrophil 74 % (42-75); Platelet Adequacy Comment Platelets Normal; RBC Morphology Within Normal Limits
[2024-02-23 06:25] LABS: Calcium 8.4 mg/dL (7.8-10.44)
[2024-02-23] MEDS: predniSONE 20 MG TAB PO SCH (09:11)
[2024-02-23 14:16] VITALS: BMI 20.9
[2024-02-24 05:59] LABS: Hematocrit 33.7 % (42.0-52.0); Hemoglobin 10.7 g/dL (14.0-18.0); Mean Corpuscular HGB CONC 31.8 g/dL (32.0-36.0); Mean Corpuscular Hemoglobin 30.1 pg (27.0-31.0); Mean Corpuscular Volume 94.7 fL (78.0-98.0); Mean Platelet Volume 9.7 fL (7.4-10.4); Platelet Count 295 10x3/uL (130-400); RBC Distribution Width 13.2 % (11.5-14.5); Red Blood Cell (RBC) Count 3.56 mill/uL (4.70-6.10)
[2024-02-24 06:17] LABS: Anion Gap 11 mmol/L (10-20); BUN (Urea Nitrogen) 34 mg/dL (8.4-25.7); Calc. Creatinine Clearance 43 mL/min (70-130); Calcium 8.3 mg/dL (7.8-10.44); Carbon Dioxide 23 mmol/L (23-31); Chloride 106 mmol/L (98-107); Estimated GFR 58; Glucose 110 mg/dL (83-110); Magnesium 2.1 mg/dL (1.6-2.6); Potassium 3.9 mmol/L (3.5-5.1); Sodium 136 mmol/L (136-145)
[2024-02-24 06:34] LABS: Anisocytosis SLIGHT = 6-15 cells HPF (0-5); Burr Cells SLIGHT = 2-5 cells HPF (0-1); Eosinophils 2 % (0-10); Lymphocytes 16 % (21-51); Metamyelocyte 2 % (0-0); Monocytes 8 % (0-10); Neutrophil 72 % (42-75); Platelet Adequacy Comment Platelets Normal; Polychromasia SLIGHT = 2-3 cells HPF (0-2); Tear Drops SLIGHT = 2-5 cells HPF (0-1); Toxic Granulation SLIGHT; Vacuoles SLIGHT
[2024-02-24] MEDS: Multivitamin W/ Minerals 1 TAB PO SCH (09:28)
[2024-02-24] MEDS: hydrALAZINE 20 MG/ML VIAL SLOW IVP PRN (16:27)
[2024-02-24] MEDS: Acetaminophen 325 MG TAB PO PRN (21:01)
[2024-02-25] MEDS: Simethicone Chewable 80 MG TAB PO PRN (01:50)
[2024-02-25 06:27] LABS: #Basophils 0.04 10x3/uL (0.0-0.2); %Basophils 0.3 % (0.0-1.0); %Eosinophils 1.4 % (0.0-10.0); %Lymphocytes 20.8 % (21.0-51.0); %Monocytes 9.3 % (0.0-10.0); %Neutrophils 63.8 % (42.0-75.0); Hematocrit 36.5 % (42.0-52.0); Hemoglobin 11.5 g/dL (14.0-18.0); Mean Corpuscular HGB CONC 31.5 g/dL (32.0-36.0); Mean Corpuscular Hemoglobin 29.9 pg (27.0-31.0); Mean Corpuscular Volume 94.8 fL (78.0-98.0); Mean Platelet Volume 9.9 fL (7.4-10.4); Platelet Count 352 10x3/uL (130-400); RBC Distribution Width 13.4 % (11.5-14.5); Red Blood Cell (RBC) Count 3.85 mill/uL (4.70-6.10)
[2024-02-25] MEDS: Ondansetron PF 4 MG/2 ML Vial IVP PRN (06:31)
[2024-02-25 06:49] LABS: Anion Gap 16 mmol/L (10-20); BUN (Urea Nitrogen) 32 mg/dL (8.4-25.7); Calc. Creatinine Clearance 41 mL/min (70-130); Calcium 8.8 mg/dL (7.8-10.44); Carbon Dioxide 23 mmol/L (23-31); Chloride 103 mmol/L (98-107); Estimated GFR 54; Glucose 103 mg/dL (83-110); Magnesium 2.2 mg/dL (1.6-2.6); Potassium 4.2 mmol/L (3.5-5.1); Sodium 138 mmol/L (136-145)
[2024-02-25] MEDS ORDERED: Sodium Chloride 0.9% 500 ML ONE (07:44)
[2024-02-25] MEDS ORDERED: Iopamidol 100 ML FS ONE (07:44)
[2024-02-25] MEDS ORDERED: Sterile Water 10 ML ONE (07:59)
[2024-02-25] MEDS ORDERED: Iopamidol-370 76% 500 ML MDV (1 ML CHARGE) ONE (10:39)
[2024-02-25 12:48] LABS: ALT (SGPT) 43 U/L (8-55); AST (SGOT) 28 U/L (5-34); Albumin 3.4 g/dL (3.4-4.8); Alkaline Phosphatase 60 U/L (40-110); Bilirubin, Direct 0.1 mg/dL (0.1-0.3); Bilirubin, Total 0.3 mg/dL (0.2-1.2); Lipase 61 U/L (8-78); Protein, Total 6.8 g/dL (5.8-8.1)
[2024-02-25 13:38] LABS: Bacteria/HPF None Seen HPF (None Seen); Bilirubin Negative (Negative); Blood, Urine Trace (Negative); CAUTI Indications for Culture Pelvic or flank pain; Clarity Clear (Clear); Glucose, Urine (Dipstick) Normal (Negative); Ketone, Urine Negative (Negative); Leukocyte 75 Leu/uL (Negative); Nitrite Negative (Negative); Protein, Urine (Dipstick) 30 mg/dL (Neg-Trace); Specific Gravity, Urine 1.013 (1.002-1.036); Squamous Epithelial None Seen HPF (0-3); Urobilinogen Normal mg/dL (Less than 2); WBC/HPF 21-50 HPF (0-3); pH, Urine 6.5 (5.0-9.0)
[2024-02-25 13:42] LABS: Urine Culture Reflex Yes Yes
[2024-02-25 16:04] LABS: Legionella Urinary Ag Negative (Negative); Strep pneumo Urine Ag NEGATIVE (NEGATIVE)
[2024-02-26 05:08] LABS: #Basophils 0.03 10x3/uL (0.0-0.2); %Basophils 0.3 % (0.0-1.0); %Eosinophils 0.8 % (0.0-10.0); %Lymphocytes 18.8 % (21.0-51.0); %Monocytes 7.4 % (0.0-10.0); %Neutrophils 68.8 % (42.0-75.0); Hematocrit 35.4 % (42.0-52.0); Hemoglobin 11.2 g/dL (14.0-18.0); Mean Corpuscular HGB CONC 31.6 g/dL (32.0-36.0); Mean Corpuscular Hemoglobin 29.6 pg (27.0-31.0); Mean Corpuscular Volume 93.4 fL (78.0-98.0); Mean Platelet Volume 9.6 fL (7.4-10.4); Platelet Count 326 10x3/uL (130-400); RBC Distribution Width 13.4 % (11.5-14.5); Red Blood Cell (RBC) Count 3.79 mill/uL (4.70-6.10)
[2024-02-26 05:29] LABS: Anion Gap 13 mmol/L (10-20); BUN (Urea Nitrogen) 25 mg/dL (8.4-25.7); Calc. Creatinine Clearance 43 mL/min (70-130); Calcium 8.7 mg/dL (7.8-10.44); Carbon Dioxide 22 mmol/L (23-31); Chloride 105 mmol/L (98-107); Estimated GFR 57; Glucose 91 mg/dL (83-110); Magnesium 2.3 mg/dL (1.6-2.6); Potassium 4.4 mmol/L (3.5-5.1); Sodium 136 mmol/L (136-145)
[2024-02-26] MEDS: Azithromycin 500 MG VIAL ONE (09:31)
[2024-02-26] MEDS ORDERED: Enoxaparin 60 MG (0.6 mL) SYRINGE SC SCH (21:00)
[2024-02-27 04:18] LABS: #Basophils Less than 0.03 10x3/uL (0.0-0.2); %Basophils 0.1 % (0.0-1.0); %Eosinophils 0.5 % (0.0-10.0); %Lymphocytes 16.8 % (21.0-51.0); %Monocytes 7.7 % (0.0-10.0); %Neutrophils 73.1 % (42.0-75.0); Hematocrit 34.6 % (42.0-52.0); Hemoglobin 11.1 g/dL (14.0-18.0); Mean Corpuscular HGB CONC 32.1 g/dL (32.0-36.0); Mean Corpuscular Hemoglobin 30.4 pg (27.0-31.0); Mean Corpuscular Volume 94.8 fL (78.0-98.0); Mean Platelet Volume 9.8 fL (7.4-10.4); Platelet Count 310 10x3/uL (130-400); RBC Distribution Width 13.5 % (11.5-14.5); Red Blood Cell (RBC) Count 3.65 mill/uL (4.70-6.10)
[2024-02-27 04:35] LABS: Anion Gap 12 mmol/L (10-20); BUN (Urea Nitrogen) 26 mg/dL (8.4-25.7); Calc. Creatinine Clearance 41 mL/min (70-130); Calcium 8.5 mg/dL (7.8-10.44); Carbon Dioxide 22 mmol/L (23-31); Chloride 107 mmol/L (98-107); Estimated GFR 54; Glucose 93 mg/dL (83-110); Magnesium 2.2 mg/dL (1.6-2.6); Sodium 137 mmol/L (136-145)
[2024-02-27] MEDS: Enoxaparin 40 MG (0.4 mL) SYRINGE SC SCH (08:38)
[2024-02-27] MEDS: predniSONE 20 MG TAB PO SCH (08:38)
[2024-02-27] MEDS: Sulfameth/Trimethoprim DS 800-160mg TAB PO SCH (08:38)
[2024-02-27] MEDS: Oxybutynin ER 5 MG TAB PO SCH ×2 (12:46→13:02)
[2024-02-27] MEDS: Ipratropium/Albuterol 3 ML NEB NEB SCH (12:50)
[2024-02-28 05:08] LABS: #Basophils 0.03 10x3/uL (0.0-0.2); %Basophils 0.2 % (0.0-1.0); %Eosinophils 0.7 % (0.0-10.0); %Lymphocytes 21.6 % (21.0-51.0); %Monocytes 8.2 % (0.0-10.0); %Neutrophils 67.9 % (42.0-75.0); Hematocrit 35.1 % (42.0-52.0); Hemoglobin 11.2 g/dL (14.0-18.0); Mean Corpuscular HGB CONC 31.9 g/dL (32.0-36.0); Mean Corpuscular Hemoglobin 30.1 pg (27.0-31.0); Mean Corpuscular Volume 94.4 fL (78.0-98.0); Mean Platelet Volume 9.7 fL (7.4-10.4); Platelet Count 340 10x3/uL (130-400); RBC Distribution Width 13.8 % (11.5-14.5); Red Blood Cell (RBC) Count 3.72 mill/uL (4.70-6.10)
[2024-02-28 05:32] LABS: Anion Gap 14 mmol/L (10-20); BUN (Urea Nitrogen) 26 mg/dL (8.4-25.7); Calc. Creatinine Clearance 36 mL/min (70-130); Calcium 8.5 mg/dL (7.8-10.44); Carbon Dioxide 21 mmol/L (23-31); Chloride 105 mmol/L (98-107); Estimated GFR 46; Glucose 87 mg/dL (83-110); Magnesium 2.2 mg/dL (1.6-2.6); Potassium 4.1 mmol/L (3.5-5.1); Sodium 136 mmol/L (136-145)
[2024-02-28 15:02] VITALS: BP 147/66; TEMP 98
== END 2024-02-28 15:50 | DRG 871 ==
LOC: ERS 07:44 → ERHOLD 10:04 → IMCU/EMU 11:27 → T4-A 02-22 09:10 → 2NO 02-25 15:10
PROVIDERS: ADMIT Internal Medicine; ATTEND Family Medicine
PROC: 3E03329 Introduction of Other Anti-infective into Peripheral Vein, Percutaneous Approach (ICD-10-PCS; 2024-02-17)
PROC: 5A09357 Assistance with Respiratory Ventilation, Less than 24 Consecutive Hours, Continuous Positive Airway Pressure (ICD-10-PCS; 2024-02-17)
PROC: 0T2BX0Z Change Drainage Device in Bladder, External Approach (ICD-10-PCS; principal; 2024-02-25)
DX: A41.9 Sepsis, unspecified organism (principal); J15.69 Pneumonia due to other Gram-negative bacteria; J18.9 Pneumonia, unspecified organism; J96.01 Acute respiratory failure with hypoxia; N39.0 Urinary tract infection, site not specified; T83.511A Infection and inflammatory reaction due to indwelling urethral catheter, initial encounter; J44.1 Chronic obstructive pulmonary disease with (acute) exacerbation; N17.9 Acute kidney failure, unspecified; E87.20 Acidosis, unspecified; T83.030A Leakage of cystostomy catheter, initial encounter; I69.351 Hemiplegia and hemiparesis following cerebral infarction affecting right dominant side; F17.210 Nicotine dependence, cigarettes, uncomplicated; N40.0 Benign prostatic hyperplasia without lower urinary tract symptoms; I10 Essential (primary) hypertension; N18.2 Chronic kidney disease, stage 2 (mild); I48.0 Paroxysmal atrial fibrillation; D73.5 Infarction of spleen; I12.9 Hypertensive chronic kidney disease with stage 1 through stage 4 chronic kidney disease, or unspecified chronic kidney disease; R65.20 Severe sepsis without septic shock; I71.40 Abdominal aortic aneurysm, without rupture, unspecified; Z98.890 Other specified postprocedural states; Z88.8 Allergy status to other drugs, medicaments and biological substances
CPT/HCPCS: 36415; 51102; 70450; 71045; 71260; 71275; 74176; 74177; 80048; 80053; 80076; 81001; 82805; 83605; 83690; 83735; 83880; 84484; 85025; 85379; 86141; 87040; 87077; 87086; 87186; 87428; 87449; 87899; 93005; 93010; 93306; 94660; 96374; 96375; J0360; J0456; J0696; J1650; J2405; J2919; J3475; J7030; J7050; J7512; J7620; Q9967